=== PATIENT | female | born 1960 | race African-American/Black ===

== ENCOUNTER 2016-11-04 01:52 | Observation (INO) | payer OTHER ==
[2016-11-04] VITALS (9 sets, daily range): BP systolic 110–143; BP diastolic 66–95
[~2016-11-04] VITALS: Ht 152.4 cm; Wt 46.8 kg
--- NOTE | ~2016-11-04 | H ---
[facility] [place] [address] HISTORY AND PHYSICAL Name: SALBADOR MEDEL Room #: 426-[facility] Rebeca Booth#: [id number] Admission: 11/04/16 Attend Phys: Janee Cruz MD Discharge: Date of : 64 Report #: [id number] THIS REPORT FOR: //name// CC: Janee Silva REASON FOR ADMISSION: Low hemoglobin. HISTORY OF PRESENT ILLNESS: This is a 52-year-old with an extensive past medical history including end-stage renal disease who is maintained on nocturnal dialysis every Monday, , Monday. She has a very complex past medical history. Her end-stage renal disease was diagnosed back in 1992 if I recall. At that time, she had a kidney biopsy that was consistent with hypertension, possible Goodpasture syndrome. She required dialysis for some time and had recovered her renal function up until 1997 when she was initiated or started on hemodialysis. She remained on hemodialysis and this was in [place]. She had her first kidney transplant back in 2006, which lasted here If I recall for about 7-8 years. She ended up with the rejection and was back on dialysis ever since. She was found in the outpatient setting to have low hemoglobin. She does not have any active symptoms of bleeding other than occasional urinary tract infections related to her kidney transplant associated with hematuria. She does not have hematochezia. She does have significant diverticulitis. No melena. No hematemesis. In terms of source of bleeding, she tells me that she had a colonoscope done at [facility] and was supposed to follow up at [facility] for another procedure. She was told about the colonoscopy results that she has diverticulosis. She does not recall having an EGD. She is not known to have any peptic ulcer disease. She does not take nonsteroidal anti-inflammatory medications. She is not on any steroids. She did have what was described by her as some procedure on her esophagus at , but she is not really sure about the kind of the procedure few years ago. In terms of her anemia, she tells me that she has recurrent anemia with hemoglobin as low as 4 in the past. She does not recall being investigated by respite care provider or by bone marrow biopsy workup. All what she recalls is that she was not responding to an erythropoietin like agent and she was switched to erythropoietin and her hemoglobin picked up. Most recent values in the outpatient setting were consistent with significant anemia and she was sent to the emergency room for further evaluation and management accordingly. MEDICATIONS: 1. Lasix. 2. Hydralazine. 3. Folic acid. 4. Lactulose. 5. Recently prescribed ciprofloxacin. ALLERGIES: LISINOPRIL and ASPIRIN. [address] [address] HISTORY AND PHYSICAL Name: SALBADOR MEDEL Room #: 426-[facility] Rebeca Booth#: [id number] Admission: 11/04/16 Attend Phys: Janee Cruz MD Discharge: Date of : 64 Report #: [id number] SOCIAL HISTORY: She is a teacher. No drug or alcohol abuse. PAST MEDICAL AND SURGICAL HISTORY: 1. End-stage renal disease. 2. Questionable history of Goodpasture syndrome. 3. Small bowel restrictions. 4. Anemia. 5. Hyperparathyroidism. 6. Kidney transplant failed. 7. Right AV fistula. 8. Colonoscope. 9. EGD. FAMILY HISTORY: Significant for hypertension. REVIEW OF SYSTEMS: GENERAL: No fever or chills, but she had significant weakness. CARDIOVASCULAR: Significant dyspnea on exertion. PULMONARY: No cough or hemoptysis. GASTROINTESTINAL: No hematemesis, no melena. GENITOURINARY: She still makes some urine with evidence of hematuria. PHYSICAL EXAMINATION: GENERAL: She is alert, oriented, in no apparent distress. VITAL SIGNS: Blood pressure is 123/85, temperature 37.8. Pulse rate 94. HEAD AND NECK: No jugular venous distention, no bruit, no thyromegaly. CHEST: Clear to auscultation. CARDIOVASCULAR: Regular with no rub detected. Soft systolic murmur. ABDOMEN: Soft, nontender with no hepatosplenomegaly. EXTREMITIES: Lower extremities: No edema. Upper extremities: Right AV fistula. LABORATORY VALUES: Reviewed. Her hemoglobin was 5.7 yesterday. She is currently being transferred. Her MCV is on the low side. Chemistry panel reviewed. She dialyzed yesterday with creatinine value of 1.8. Albumin is 2.4. ASSESSMENT, IMPRESSION AND PLAN: 1. End-stage renal disease. 2. Severe anemia. 3. Failed transplant. 4. Hypertension. 5. Hyperparathyroidism. 6. Remote history of bowel resections. 7. Admission. 8. Anemia workup. 9. Dialysis every Monday, , Monday. [facility] [address] [place] [address] HISTORY AND PHYSICAL Name: GIANFRANCOSALBADOR Room #: 426-P ADM Rebeca Booth#: [id number] Admission: 11/04/16 Attend Phys: Janee Cruz MD Discharge: Date of : 64 Report #: [id number] 10. GI evaluation. 11. CT abdomen. 12. Transfusion. 13. Hematological evaluation. <ELECTRONICALLY SIGNED> By: Janee Cruz MD 11/05/16 0748 [id number] Janee Cruz MD /nt
[2016-11-04] MEDS ORDERED: HYDRALAZINE 2525 MG PO (02:05)
[2016-11-04] MEDS ORDERED: LASIX 80 MG TAB80 MG PO (02:05)
[2016-11-04] MEDS ORDERED: RENAL CAPS SOFTG1 MG PO (02:06)
[2016-11-04] MEDS ORDERED: CONSTULOSE10 GM/15 M PO (02:06)
[2016-11-04] MEDS ORDERED: TUMS PO (02:07)
[2016-11-04] MEDS ORDERED: CIPRO250 M1 PO (02:07)
[2016-11-04 03:20] LABS: MCV 75.9 fL (80.0-100.0); RBC 2.27 mil/uL (4.20-5.00); RDW 22.4 % (10.5-14.5); WBC 9.3 thou/uL (4.0-11.0)
[2016-11-04 03:29] LABS: CALCIUM 8.8 mg/dL (8.5-10.1); CREATININE 1.8 mg/dL (0.6-1.0); POTASSIUM 3.6 mmol/L (3.5-5.1)
[2016-11-04 03:30] LABS: APTT 35.5 Seconds (24.5-32.8); INR 1.3
[2016-11-04 03:33] LABS: ALBUMIN 2.4 g/dL (3.4-5.0); TOTAL BILIRUBIN 0.5 mg/dL (<0.1-1.0); TOTAL PROTEIN 7.7 g/dL (6.4-8.2)
[2016-11-04 03:41] LABS: HEMATOCRIT 17.3 % (37.0-47.0); HEMOGLOBIN 5.7 gm/dL (12.0-15.0)
[2016-11-04 10:03] LABS: OBSERVED RETIC COUNT 2.31 % (0.6-2.6)
[2016-11-04 10:35] LABS: FOLIC ACID 5.7 ng/mL (8.6-58.9)
[2016-11-04 12:11] LABS: URINE BILIRUBIN NEGATIVE (Negative); URINE BLOOD 3+ (Negative); URINE GLUCOSE-RANDOM* NEGATIVE (Negative); URINE KETONES NEGATIVE (Negative); URINE NITRITE POSITIVE (Negative); URINE PROTEIN (DIPSTICK) 3+ (Negative); URINE SPECIFIC GRAVITY 1.015 (1.003-1.035); URINE UROBILINOGEN 0.2 E.U./dl (0.2-1.0)
[2016-11-04 12:19] LABS: URINE COLOR AMBER
[2016-11-04 12:27] LABS: CASTS None Seen /LPF (None Seen); SQUAMOUS 4-10 Moderate /LPF (0-3)
[2016-11-04 12:28] LABS: BACTERIA 1-9 Few /HPF (None Seen); CRYSTALS None Seen /LPF (None Seen); URINE RBC 3-10 Few /HPF (0-2); URINE WBC 6-15 Few /HPF (0-5)
[2016-11-04 13:56] LABS: % SATURATION 27 % (20-39); IRON 36 ug/dL (50-170); TIBC 133 ug/dL (250-450); UIBC 97 ug/dL
[2016-11-05 04:00] VITALS: BP 146/105
[2016-11-05 04:46] LABS: HEMATOCRIT 27.5 % (37.0-47.0); MCH 25.6 pg (26.0-34.0); MCHC 32.6 g/dL (28.0-37.0); MCV 78.6 fL (80.0-100.0); RBC 3.5 mil/uL (4.20-5.00); WBC 10.6 thou/uL (4.0-11.0)
[2016-11-05 05:00] LABS: ALBUMIN 2.2 g/dL (3.4-5.0); CALCIUM 8.9 mg/dL (8.5-10.1); CREATININE 4.4 mg/dL (0.6-1.0); PHOSPHORUS 2.9 mg/dL (2.5-4.9); POTASSIUM 4.6 mmol/L (3.5-5.1)
[2016-11-05 08:45] VITALS: BP 132/82
[2016-11-05 20:30] VITALS: BP 137/93
[2016-11-06 04:30] VITALS: BP 142/93
[2016-11-06 05:51] LABS: HEMATOCRIT 26.7 % (37.0-47.0); HEMOGLOBIN 8.8 gm/dL (12.0-15.0); MCH 25.6 pg (26.0-34.0); MCHC 32.8 g/dL (28.0-37.0); MCV 77.9 fL (80.0-100.0); RBC 3.43 mil/uL (4.20-5.00); RDW 20.2 % (10.5-14.5); WBC 10.4 thou/uL (4.0-11.0)
[2016-11-06 06:09] LABS: ALBUMIN 2.4 g/dL (3.4-5.0); CALCIUM 8.7 mg/dL (8.5-10.1); CREATININE 3.7 mg/dL (0.6-1.0); PHOSPHORUS 1.7 mg/dL (2.5-4.9); POTASSIUM 3.8 mmol/L (3.5-5.1)
[2016-11-06 08:00] VITALS: BP 139/86
[2016-11-06 10:23] VITALS: BP 139/86
[2016-11-08 16:08] LABS: HB-F 16.5 % (0.0-2.0); HGB ELECTROPH. COMMENT Note: (()); Hgb A 81.4 % (94.0-98.0)
== END 2016-11-06 11:06 | disposition home or self-care (01) ==
LOC: ER 01:52 → EROBS 03:45 → 4E 03:45
PROVIDERS: Emergency Medicine; Hospitalist; Internal Medicine Hematology & Oncology
DX: N18.6 End stage renal disease (principal); I12.0 Hypertensive chronic kidney disease with stage 5 chronic kidney disease or end stage renal disease; D63.1 Anemia in chronic kidney disease; E21.3 Hyperparathyroidism, unspecified; Z99.2 Dependence on renal dialysis; Z13.0 Encounter for screening for diseases of the blood and blood-forming organs and certain disorders involving the immune mechanism
CPT/HCPCS: 32100

== ENCOUNTER 2017-03-16 23:44 | Emergency (ER) | payer OTHER ==
[~2017-03-16] VITALS: Ht 152.4 cm; Wt 46.3 kg
--- NOTE | ~2017-03-16 | EKG ---
[place] [address] [facility] [place] [employer] [place] [address] ELECTROCARDIOGRAM REPORT Name: SALBADOR MEDEL Room #: REG ALEJA Booth#: [id number] Admission: 03/16/17 Attend Phys: Discharge: Date of : 64 Report #: [id number] THIS REPORT FOR: //name// [facility] ED Test Date: 2017-03-17 Test Time: 00:12:07 Pat Name: SALBADOR MEDEL Department: Room: Gender: F Nurseryman Assistant: [id number] : 1960 Requested By: Judah Tracy Order Number: [id number] MD: Seun Johnson Measurements Intervals [place] Rate: 79 P: 0 IN: 171 QRS: 5 QRSD: 86 T: 34 QT: 443 QTc: 508 Interpretive Statements Sinus rhythm Left ventricular hypertrophy Borderline prolonged QT interval No previous ECG available for comparison Electronically Signed On 03-17-2017 8:45:38 CDT by Seun Johnson [email or web address] <ELECTRONICALLY SIGNED> By: Seun Johnson MD, LOCATED WITHIN [facility] 03/17/17 0845 0012 0012 Seun Johnson MD, FAC /EPI
[~2017-03-16 23:44] MED LIST: CIPRO250 M1 PO; CONSTULOSE10 GM/15 M PO; HYDRALAZINE 2525 MG PO; LASIX 80 MG TAB80 MG PO; RENAL CAPS SOFTG1 MG PO; TUMS PO
[2017-03-16] MEDS ORDERED: ATENOLOL 25 MG25 M1 PO (23:57)
[2017-03-17 00:30] LABS: ABSOLUTE NEUTROPHILS 3.7 thou/uL (1.4-8.2); BASOPHILS 1.2 % (0.0-2.0); EOSINOPHILS 17.4 % (0.0-3.0); HEMATOCRIT 24.4 % (37.0-47.0); HEMOGLOBIN 8.3 gm/dL (12.0-15.0); LYMPHOCYTES 22.9 % (24.0-44.0); MCHC 34.1 g/dL (28.0-37.0); MCV 82.1 fL (80.0-100.0); MONOCYTES 9.7 % (1.0-8.0); PLATELET COUNT 144 thou/uL (150-400); POLYS 48.8 % (36.0-66.0); RBC 2.97 mil/uL (4.20-5.00); WBC 7.5 thou/uL (4.0-11.0)
[2017-03-17 00:34] LABS: MANUAL DIFF NO
[2017-03-17 00:36] LABS: ANION GAP 8 mmol/L (7-16); BUN 10 mg/dL (7-18); CHLORIDE 95 mmol/L (98-107); CO2 30 mmol/L (21-32); CREATININE 1.8 mg/dL (0.6-1.0); GLUCOSE 95 mg/dL (74-106); POTASSIUM 3.6 mmol/L (3.5-5.1); SODIUM 133 mmol/L (136-145)
[2017-03-17 00:45] LABS: APTT 34.8 Seconds (24.5-32.8); INR 1.1; PROTIME 11.3 Seconds (9.3-11.4)
[2017-03-17 00:46] LABS: ALBUMIN 3.5 g/dL (3.4-5.0); ALKALINE PHOSPHATASE 197 U/L (46-116); MAGNESIUM 1.8 mg/dL (1.8-2.4); SGOT 26 U/L (15-37); SGPT 29 U/L (30-65); TOTAL BILIRUBIN 0.5 mg/dL (<0.1-1.0); TROPONIN-I < 0.04 ng/mL (<0.04-0.07)
== END 2017-03-17 01:45 | disposition home or self-care (01) ==
LOC: ER 23:44
PROVIDERS: Emergency Medicine
DX: I47.1 Supraventricular tachycardia (principal); F10.99 Alcohol use, unspecified with unspecified alcohol-induced disorder; Z99.2 Dependence on renal dialysis; Z91.041 Radiographic dye allergy status; Z88.6 Allergy status to analgesic agent; Z88.8 Allergy status to other drugs, medicaments and biological substances